=== PATIENT | female | born 1975 | race American Indian/Alaskan Native ===

== ENCOUNTER 2016-12-14 09:02 | Emergency (ER) | payer SELFPAY ==
[2016-12-14 09:20] VITALS: BP 133/94
--- NOTE | 2016-12-14 09:35 | Emergency Department Report ---
ED General Adult HPI - General Chief complaint: Extremity Injury, Lower Stated complaint: HEEL PAIN BOTH FEET Time Seen by Provider: 12/14/16 09:24 Source: patient Mode of arrival: Ambulatory Limitations: No Limitations - History of Present Illness Initial comments: Patient c/o b/l heel pain x 1 week. Describes sharp, drilling pain to both heels worsened as the day progresses. 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 Denies swelling, weakness, tingling, numbness. Denies trauma, any other known injury. States no relief with goodies powder. Denies other acute complaints today. - Related Data Previous Rx's Medication Instructions Recorded Last Taken Type metroNIDAZOLE [Flagyl] 500 mg PO TID #21 tablet 09/28/13 Unknown Rx Acetaminophen/Codeine [Tylenol #3] 1 tab PO Q6H PRN #15 tab 06/27/15 Unknown Rx metroNIDAZOLE [Flagyl TAB] 500 mg PO Q12HR #14 tab 06/27/15 Unknown Rx Ibuprofen [Motrin 800 MG tab] 800 mg PO Q8HR PRN #30 tablet 12/14/16 Unknown Rx Allergies Allergy/AdvReac Type Severity Reaction Status Date / Time No Known Allergies Allergy Unverified 09/28/13 09:23 ED Review of Systems ROS: Stated complaint: HEEL PAIN BOTH FEET Other details as noted in HPI Comment: All other systems reviewed and negative ED Past Medical Hx - Past Medical History Previous Medical History?: No - Surgical History Past Surgical History?: No - Social History Smoking Status: Never Smoker Substance Use Type: Alcohol - Medications Home Medications: Home Medications Medication Instructions Recorded Confirmed Last Taken Type metroNIDAZOLE [Flagyl] 500 mg PO TID #21 tablet 09/28/13 Unknown Rx Acetaminophen/Codeine [Tylenol #3] 1 tab PO Q6H PRN #15 tab 06/27/15 Unknown Rx metroNIDAZOLE [Flagyl TAB] 500 mg PO Q12HR #14 tab 06/27/15 Unknown Rx Ibuprofen [Motrin 800 MG tab] 800 mg PO Q8HR PRN #30 tablet 12/14/16 Unknown Rx ED Physical Exam - General Limitations: No Limitations General appearance: alert, in no apparent distress - Head Head exam: Present: atraumatic, normocephalic, normal inspection - Respiratory Respiratory exam: Present: normal lung sounds bilaterally. Absent: respiratory distress - Cardiovascular Cardiovascular Exam: Present: regular rate, normal rhythm - Extremities Exam Extremities exam: Present: normal inspection, full ROM, tenderness (b/l heel), normal capillary refill. Absent: pedal edema, joint swelling, calf tenderness - Neurological Exam Neurological exam: Present: alert, oriented X3, reflexes normal, other ( Negative barbinski). Absent: motor sensory deficit - Psychiatric Psychiatric exam: Present: normal affect, normal mood - Skin Skin exam: Present: warm, dry, intact, normal color. Absent: rash, cyanosis, erythema, petechiae, pallor, abrasion, ecchymosis ED Course Vital Signs 12/14/16 09:17 Temperature 98.1 F Pulse Rate 74 Respiratory 16 Rate Blood Pressure 133/94 O2 Sat by Pulse 100 Oximetry Critical care attestation.: If time is entered above; I have spent that time in minutes in the direct care of this critically ill patient, excluding procedure time. ED Disposition Clinical Impression: Plantar fasciitis Disposition: DISCHARGED TO HOME OR SELFCARE Is pt being admited?: No Does the pt Need Aspirin: No Condition: Stable Instructions: Plantar Fasciitis (ED) Prescriptions: Ibuprofen [Motrin 800 MG tab] 800 mg PO Q8HR PRN #30 tablet PRN Reason: Pain Referrals: JASKARAN NDIAYE MD [Staff Physician] - 3-5 Days Forms: Work/School Release Form(ED) Time of Disposition: 09:35
== END 2016-12-14 09:47 | disposition home or self-care (01) ==
LOC: ED 09:02
DX: M72.2 Plantar fascial fibromatosis (principal)
CPT/HCPCS: 99282

== ENCOUNTER 2017-02-04 15:41 | Emergency (ER) | payer SELFPAY ==
[2017-02-04 18:08] LABS: Eosinophils % (Auto) 2.6 % (0.0-4.3); Hematocrit 38.3 % (30.3-42.9); Hemoglobin 12.7 gm/dl (10.1-14.3); Mean Corpuscular HGB Conc 33 % (30-34); Mean Corpuscular Hemoglobin 29 pg (28-32); Mean Corpuscular Volume 87 fl (79-97); Platelet Count 369 K/mm3 (140-440); Red Blood Count 4.41 M/mm3 (3.65-5.03); Red Cell Distribution Width 12.8 % (13.2-15.2); White Blood Count 5.6 K/mm3 (4.5-11.0)
[2017-02-04 18:27] LABS: Anion Gap 14 mmol/L; Blood Urea Nitrogen 9 mg/dL (7-17); Calcium 8.9 mg/dL (8.4-10.2); Carbon Dioxide 27 mmol/L (22-30); Chloride 100.9 mmol/L (98-107); Glucose 92 mg/dL (65-100); Potassium 3.8 mmol/L (3.6-5.0); Sodium 138 mmol/L (137-145)
[2017-02-04] MEDS ORDERED: NORVASC PO ONE (23:25)
[2017-02-04 23:45] VITALS: BP 142/100
--- NOTE | 2017-02-04 23:49 | Emergency Department Report ---
ED General Adult HPI - General Chief complaint: High BP Stated complaint: HIGH BLOOD PRESSURE Time Seen by Provider: 02/04/17 23:25 Source: patient Mode of arrival: Ambulatory Limitations: No Limitations - History of Present Illness Initial comments: 40-year-old female with no significant past medical history presents to the hospital with elevated blood pressure. Patient started a new job and had her blood pressure checked and was told to come to the ER because it was hi and stroke level. He was 149/114 prior to arrival and 155/104 after arrival. Patient is asymptomatic and denies headache, chest pain, blurred vision, or shortness of breath. No previous history of high blood pressure but patient states her blood pressure has been elevated recently when checked at local drugstores. 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 - Related Data Previous Rx's Medication Instructions Recorded Last Taken Type metroNIDAZOLE [Flagyl] 500 mg PO TID #21 tablet 09/28/13 Unknown Rx Acetaminophen/Codeine [Tylenol #3] 1 tab PO Q6H PRN #15 tab 06/27/15 Unknown Rx metroNIDAZOLE [Flagyl TAB] 500 mg PO Q12HR #14 tab 06/27/15 Unknown Rx Ibuprofen [Motrin 800 MG tab] 800 mg PO Q8HR PRN #30 tablet 12/14/16 Unknown Rx amLODIPine [Norvasc] 5 mg PO DAILY #30 tab 02/04/17 Unknown Rx Allergies Allergy/AdvReac Type Severity Reaction Status Date / Time No Known Allergies Allergy Unverified 09/28/13 09:23 ED Review of Systems ROS: Stated complaint: HIGH BLOOD PRESSURE Other details as noted in HPI Comment: All other systems reviewed and negative Other: Constitutional: No fevers chills Eyes: No eye pain visual changes ENT: No ear pain or throat pain Neck: Denies pain Respiratory: Denies cough wheezing shortness of breath Cardiovascular: Denies chest pain, palpitations, syncope GI: Denies abdominal pain, nausea, vomiting, diarrhea : Denies dysuria Musculoskeletal: Denies back pain Skin: Denies rash, lesions, erythema Neurologic: Denies headache, numbness, weakness Psychiatric: Denies suicidal ideation, hallucinations ED Past Medical Hx - Past Medical History Previous Medical History?: No - Surgical History Past Surgical History?: No - Social History Smoking Status: Never Smoker Substance Use Type: Alcohol - Medications Home Medications: Home Medications Medication Instructions Recorded Confirmed Last Taken Type metroNIDAZOLE [Flagyl] 500 mg PO TID #21 tablet 09/28/13 Unknown Rx Acetaminophen/Codeine [Tylenol #3] 1 tab PO Q6H PRN #15 tab 06/27/15 Unknown Rx metroNIDAZOLE [Flagyl TAB] 500 mg PO Q12HR #14 tab 06/27/15 Unknown Rx Ibuprofen [Motrin 800 MG tab] 800 mg PO Q8HR PRN #30 tablet 12/14/16 Unknown Rx amLODIPine [Norvasc] 5 mg PO DAILY #30 tab 02/04/17 Unknown Rx ED Physical Exam - General Limitations: No Limitations - Other Other exam information: General: No limitations, patient is alert in no acute distress Head exam: Atraumatic, normocephalic Eyes exam: Normal appearance, pupils equal reactive to light, extraocular movements intact ENT: Moist mucous membrane, normal oropharynx Neck exam: Normal inspection, full range of motion, no meningismus nontender Respiratory exam: Clear to auscultation bilateral, no wheezes, rales, crackles Cardiovascular: Normal rate and rhythm, normal heart sounds Abdomen: Soft, nondistended, and nontender, with normal bowel sounds, no rebound, or guarding Extremity: Full range of motion normal inspection no deformity Back: Normal Inspection, full range of motion, no tenderness Neurologic: Alert, oriented x3, cranial nerves intact, no motor or sensory deficit Psychiatric: normal affect, normal mood Skin: Warm, dry, intact ED Course Vital Signs 02/04/17 02/04/17 17:09 23:45 Temperature 98.0 F Pulse Rate 75 74 Respiratory 20 18 Rate Blood Pressure 155/104 142/100 Blood Pressure 142/100 [Right] O2 Sat by Pulse 100 99 Oximetry - Reevaluation(s) Reevaluation #1: 02/04/17 23:50 norvasc 5 mg given ED Medical Decision Making - Lab Data Result diagrams: 02/04/17 17:53 02/04/17 17:53 Lab Results 02/04/17 02/04/17 Range/Units 17:53 17:53 WBC 5.6 (4.5-11.0) K/mm3 RBC 4.41 (3.65-5.03) M/mm3 Hgb 12.7 (10.1-14.3) gm/dl Hct 38.3 (30.3-42.9) % MCV 87 (79-97) fl MCH 29 (28-32) pg MCHC 33 (30-34) % RDW 12.8 L (13.2-15.2) % Plt Count 369 (140-440) K/mm3 Lymph % (Auto) 45.0 H (13.4-35.0) % [place] % (Auto) 4.1 (0.0-7.3) % Eos % (Auto) 2.6 (0.0-4.3) % Baso % (Auto) 1.0 (0.0-1.8) % Lymph # 2.5 (1.2-5.4) K/mm3 [place] # 0.2 (0.0-0.8) K/mm3 Eos # 0.1 (0.0-0.4) K/mm3 Baso # 0.1 (0.0-0.1) K/mm3 Seg Neutrophils % 47.3 (40.0-70.0) % Seg Neutrophils # 2.6 (1.8-7.7) K/mm3 Sodium 138 (137-145) mmol/L Potassium 3.8 (3.6-5.0) mmol/L Chloride 100.9 (98-107) mmol/L Carbon Dioxide 27 (22-30) mmol/L Anion Gap 14 mmol/L BUN 9 (7-17) mg/dL Creatinine 0.5 L (0.7-1.2) mg/dL Estimated GFR > 60 ml/min BUN/Creatinine Ratio 18.00 % Glucose 92 (65-100) mg/dL Calcium 8.9 (8.4-10.2) mg/dL - Medical Decision Making Plan to d/c pt home with MEds for newly diagnosed HTN. Pt is asymptomatic and normal renal function on labs therefore no signs of hypertensive emergency. - Differential Diagnosis asymptomatic hypertension, hypertensive emergency, renal failure, Critical Care Time: No Critical care attestation.: If time is entered above; I have spent that time in minutes in the direct care of this critically ill patient, excluding procedure time. ED Disposition Clinical Impression: HTN (hypertension) Disposition: DISCHARGED TO HOME OR SELFCARE Is pt being admited?: No Does the pt Need Aspirin: No Condition: Stable Instructions: Hypertension (ED) Additional Instructions: Take the newly prescribed high blood pressure medication daily for your diagnoses of hypertension. It is very important that you follow up with a primary care doctor within 3-5 days. Continue to monitor blood pressure at home. If your blood pressure remains elevated, you will need further blood pressure medication adjustment. Return to the ER if you have headache, blurred vision, chest pain, or shortness of breath (or other symptoms indicated on the discharge instructions). Otherwise, you may follow-up with your primary care doctor for further management as opposed to returning to the ER. Prescriptions: amLODIPine [Norvasc] 5 mg PO DAILY #30 tab Referrals: [facility] [Provider Group] - 3-5 Days (clinic) LÓPEZ YI MD [Staff Physician] - 3-5 Days (Primary care doctor) Forms: Work/School Release Form(ED) Time of Disposition: 23:54
== END 2017-02-05 00:02 | disposition home or self-care (01) ==
LOC: ED 15:41
DX: R03.0 Elevated blood-pressure reading, without diagnosis of hypertension (principal)
CPT/HCPCS: 36415; 80048; 85025; 99283